=== PATIENT | female | born 1950 | race Caucasian/White ===

== ENCOUNTER 2018-10-03 11:57 | Emergency (ER) | payer OTHER ==
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
[2018-10-03] MEDS ORDERED: LOSA25TA57 PO (12:14)
[2018-10-03] MEDS ORDERED: DONE5TAB74 PO (12:14)
[2018-10-03] MEDS ORDERED: METO25TA23 PO (12:14)
[2018-10-03] MEDS ORDERED: LAMO25TA64 PO (12:14)
[2018-10-03] MEDS ORDERED: KETOROLAC TROM 10MG TAB PO ONE (12:40)
[2018-10-03] MEDS ORDERED: CYCLOBENZAPRINE HCL 10 MG TAB PO ONE (13:35)
--- NOTE | 2018-10-03 13:39 | RADIOLOGY IMAGING REPORT ---
FACILITY: [facility] - [place] PATIENT NAME: Jannette Paez : 1950 MR: [id number] V: [id number] EXAM DATE: ORDERING PHYSICIAN: WILBERTO LOO TECHNOLOGIST: Location: [facility] Patient: Jannette Paez : 1950 Visit/Account:[id number] Date of Sevice: 10/03/2018 Study: CERVICAL SPINE MIN 4 VIEW Indication: Neck pain Comparison study: None available Findings: AP lateral open mouth and bilateral oblique views of the cervical spine demonstrates no stephanie dence of acute bony abnormality. There is no evidence of prevertebral soft tissue swelling. The bon y neural foramina are unremarkable. There is no evidence of lytic or blastic bony lesions. The atlantoaxial articulation is unremarkable. IMPRESSION: No significant abnormality identified. Report Dictated By: Carlos Phillips at 10/03/2018 1:30 PM Report E-Signed By: Carlos Phillips at 10/03/2018 1:34 PM WSN:[id number]
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
[2018-10-03] MEDS ORDERED: KET10 PO (14:18)
[2018-10-03] MEDS ORDERED: CYCL10TA29 PO (14:18)
[2018-10-03 14:30] VITALS: BP 141/62
== END 2018-10-03 14:47 | disposition home or self-care (01) ==
LOC: ER 12:17
DX: S13.4XXA Sprain of ligaments of cervical spine, initial encounter (principal); V49.60XA Unspecified car occupant injured in collision with unspecified motor vehicles in traffic accident, initial encounter
CPT/HCPCS: 72050; 72120; 99284

== ENCOUNTER → 2018-11-05 | Outpatient (CLI) | payer MEDICARE ==
[~2018-11-05] MED LIST: CYCL10TA29 PO; DONE5TAB74 PO; KET10 PO; LAMO25TA64 PO; LOSA25TA57 PO; METO25TA23 PO
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
[2018-11-05 15:45] LABS: LDL CHOLESTEROL 134 mg/dl
[2018-11-05 15:50] LABS: PLATELET COUNT, AUTOMATED 303 K/uL (150-450)
== END ==
LOC: RAD 13:19
PROVIDERS: ATTEND Nurse Practitioner Family
DX: S32.9XXS Fracture of unspecified parts of lumbosacral spine and pelvis, sequela (principal); R73.01 Impaired fasting glucose; R53.81 Other malaise; E87.8 Other disorders of electrolyte and fluid balance, not elsewhere classified; E78.00 Pure hypercholesterolemia, unspecified; E53.8 Deficiency of other specified B group vitamins; E55.9 Vitamin D deficiency, unspecified
CPT/HCPCS: 36415; 77080; 82040; 82247; 82306; 82310; 82374; 82435; 82465; 82565; 82607; 82947; 83036; 83718; 84075; 84132; 84155; 84295; 84443; 84450; 84460; 84478; 84520; 85025

== ENCOUNTER 2018-11-19 11:32 | Inpatient (IN) | payer MEDICARE ==
[~2018-11-19] VITALS: Ht 177.8 cm; Wt 111.1 kg
--- NOTE | 2018-11-19 11:40 | ER Report ---
History and Physical Time Seen By MD: 11:37 HPI/ROS CHIEF COMPLAINT: Coffee grounds emesis HISTORY OF PRESENT ILLNESS: This is a 68-year-old female who presents to the emergency department for coffee grounds emesis. Patient states that she has been not feeling well with nausea and some vomiting and little intake over the last 10-14 days. She states today she had a coffee grounds emesis. She also has felt flushed and subjectively has had fevers. She has intermittent abdominal pain, normal bowel movement today however it was green in color. She is also had decreased urinary output and does appear to be concentrated, with a foul odor. She states she typically takes large quantities of NSAIDs however the last several days she's cut back on that and started taking Tylenol for her arthritis. She denies rashes, no headaches, denies chest pain or shortness of breath. REVIEW OF SYSTEMS: Constitutional: As above. Eyes: No discharge. ENT: No sore throat. Cardiovascular: No chest pain, no palpitations. Respiratory: No cough, no shortness of breath. Gastrointestinal: As above. Genitourinary: No hematuria. Musculoskeletal: No back pain. Skin: No rashes. Neurological: No headache. Allergies: Coded Allergies: Penicillins (Verified Allergy, Unknown, swelling, 11/19/18) IRLANDA Inhibitors (Verified Adverse Reaction, Unknown, cough, 11/19/18) cephalexin (Verified Adverse Reaction, Unknown, vomiting, 11/19/18) Home Meds Active Scripts Cyclobenzaprine Hcl (CYCLOBENZAPRINE HCL) 10 Mg Tablet, 10 MG PO TID PRN for PAIN, #15 TAB Prov:WILBERTO LOOP 10/03/18 Ketorolac Tromethamine (KETOROLAC TROMETHAMINE) 10 Mg Tab, 10 MG PO Q6H PRN for PAIN, #20 TAB Prov:WILBERTO LOO [facility] 10/03/18 Reported Medications Loratadine (CLARITIN) 10 Mg Capsule, 10 MG PO DAILY, CAPSULE 11/19/18 Prednisone (PREDNISONE) 20 Mg Tablet, 20 MG PO QDAY, TAB 11/04/18 Take 20 mg PO daily for 5 days, then go down to 5 mg daily. 11/19/18 Losartan Potassium (LOSARTAN POTASSIUM) 25 Mg Tablet, 100 MG PO QDAY 10/03/18 Donepezil Hcl (ARICEPT) 5 Mg Tablet, 10 MG PO QDAY, TAB 10/03/18 Metoprolol Succinate (METOPROLOL SUCCINATE) 25 Mg Tab.er.24h, 1 TAB PO QDAY, TAB 10/03/18 Lamotrigine (LAMICTAL) 25 Mg Tablet, 100 MG PO DAILY 10/03/18 Past Medical/Surgical History The patient has a past medical and surgical history of hypertension, appendectomy, cholecystectomy, hysterectomy, right rotator cuff repair, bilateral ankle surgeries. Reviewed Nurses Notes: Yes Constitutional Vital Sign - Last 24 Hours 11/19/18 11/19/18 11/19/18 11/19/18 11:40 11:40 12:00 12:02 Temp 99.3 Pulse 87 77 Resp 16 B/P (MAP) 123/81 (95) 133/100 (111) Pulse Ox 90 91 11/19/18 11/19/18 11/19/18 11/19/18 12:30 12:32 13:00 13:02 Pulse 69 68 B/P (MAP) 126/70 (88) 135/56 (82) Pulse Ox 94 91 11/19/18 11/19/18 11/19/18 11/19/18 13:07 13:30 13:37 13:42 Pulse 70 70 69 Resp 14 17 14 B/P (MAP) 128/59 (82) Pulse Ox 90 91 11/19/18 14:00 B/P (MAP) 148/70 (96) Physical Exam General Appearance: The patient is alert, has no immediate need for airway protection and no signs of toxicity. Eyes: Pupils equal and round no pallor or injection. ENT, Mouth: Mucous membranes are dry. Respiratory: There are no retractions, lungs are clear to auscultation. Cardiovascular: Regular rate and rhythm. No murmurs, clicks or rubs. Gastrointestinal: Abdomen is round, soft and diffusely tender in all quadrants, no masses, bowel sounds normal. Neurological: Alert and oriented sats 4. Moving all cavities. Following. No focal neurodeficits. Skin: Warm and dry, no rashes. Musculoskeletal: Neck is supple non tender. Bilateral lower back pain. No rashes, contusions, crepitus or deformities. Extremities are nontender, nonswollen and have full range of motion. DIFFERENTIAL DIAGNOSIS: After history and physical exam differential diagnosis was considered for urinary tract infection, appendicitis, sepsis, bowel obstruction, renal colic, upper GI bleed. Medical Decision Making Data Points Result Diagram: 11/19/18 1145 11/19/18 1145 Laboratory Hematology Test 11/19/18 11:45 White Blood Count 16.1 k/uL (4.5-11.0) H Red Blood Count 4.69 M/uL (4.17-5.56) Hemoglobin 13.4 g/dL (12.0-16.0) Hematocrit 39.8 % (34.0-47.0) Mean Corpuscular Volume 84.8 fL (80.0-96.0) Mean Corpuscular Hemoglobin 28.5 pg (26.0-33.0) Mean Corpuscular Hemoglobin Concent 33.6 g/dL (32.0-36.0) Red Cell Distribution Width 13.8 % (11.5-14.5) Platelet Count 379 K/uL (150-450) Mean Platelet Volume 8.0 fL (7.2-11.1) Neutrophils (%) (Auto) 76.3 % (39.4-72.5) H Lymphocytes (%) (Auto) 16.4 % (17.6-49.6) L Monocytes (%) (Auto) 6.1 % (4.1-12.4) Eosinophils (%) (Auto) 0.5 % (0.4-6.7) Basophils (%) (Auto) 0.7 % (0.3-1.4) Nucleated RBC Relative Count (auto) 0.7 /100WBC Neutrophils # (Auto) 12.3 K/uL (2.0-7.4) H Lymphocytes # (Auto) 2.6 K/uL (1.3-3.6) Monocytes # (Auto) 1.0 K/uL (0.3-1.0) Eosinophils # (Auto) 0.1 K/uL (0.0-0.5) Basophils # (Auto) 0.1 K/uL (0.0-0.1) Nucleated RBC Absolute Count (auto) 0.12 K/uL Chemistry Test 11/19/18 11:45 Sodium Level 139 mmol/L (137-145) Potassium Level 2.9 mmol/L (3.5-5.0) Chloride Level 107 mmol/L (98-107) Carbon Dioxide Level 19 mmol/L (22-31) Blood Urea Nitrogen 14 mg/dl (7-18) Creatinine 0.80 mg/dl (0.52-1.04) Glomerular Filtration Rate Calc > 60.0 Random Glucose 131 mg/dl (75-110) Lactate 1.3 mmol/L (0.7-2.1) Calcium Level 9.3 mg/dl (8.4-10.2) Magnesium Level 1.9 mg/dl (1.7-2.2) Total Bilirubin 0.6 mg/dl (0.2-1.3) Aspartate Amino Transf (AST/SGOT) 16 U/L (0-35) Alanine Aminotransferase (ALT/SGPT) 25 U/L (0-56) Alkaline Phosphatase 93 U/L (0-126) Total Protein 7.0 g/dl (6.3-8.2) Albumin 3.8 g/dl (3.5-5.0) Lipase 105 U/L (23-300) Coagulation Test 11/19/18 11:45 Prothrombin Time 13.8 seconds (12.0-14.4) Prothromb Time International Ratio 1.05 Activated Partial Thromboplast Time 28 seconds (23-35) Urinalysis Test 11/19/18 11:53 Urine Color Yellow Urine Clarity Slightly-cloudy Urine pH 6.0 pH (4.8-9.5) Urine Specific [place] 1.011 Urine Protein Negative mg/dL (NEGATIVE) Urine Glucose (UA) Negative mg/dL (NEGATIVE) Urine Ketones Negative mg/dL (NEGATIVE) Urine Blood Moderate (NEGATIVE) Urine Nitrite Positive (NEGATIVE) Urine Bilirubin Negative (NEGATIVE) Urine Urobilinogen Negative mg/dL (0.2-1.9) Urine Leukocyte Esterase Small (NEGATIVE) Urine RBC 2 /HPF (0-2/HPF) Urine WBC 24 /HPF (0-5/HPF) Urine Squamous Epithelial Cells Moderate /LPF (</=FEW) Urine Transitional Epithelial Cells Moderate /LPF (NONE-FEW) Urine Bacteria Moderate /HPF (NONE-FEW) Urine Mucus Few /HPF (NONE-FEW) EKG/Imaging EKG Interpretation 12 lead EKG: Time of EKG 158. Rhythm: normal sinus rhythm, ventricular rate 74 bpm. [place]: normal QRS: normal ST segments: No ST depression or elevation identified. No previous EKGs for comparison. Imaging PATIENT NAME: Jannette Paez : 1950 MR: [id number] V: [id number] EXAM DATE: ORDERING PHYSICIAN: NEL ACUÑA TECHNOLOGIST: Location: [facility] - [place] Patient: Jannette Paez : 1950 Visit/Account:[id number] Date of Sevice: 11/19/2018 EXAMINATION: Abdomen and pelvis CT with contrast HISTORY: Abdomen pain TECHNIQUE: CT was performed through the abdomen and pelvis following injection of iodinated intravenous contrast. Sagittal and coronal MPR reformatted images were generated. 75 mL isovue 370 injected. One of the following dose optimization techniques was utilized in the performance of this exam: automated exposure control; adjustment of the mA and/or kV according to patient size; or use of iterative reconstruction technique. Specific details can be referenced in the facility's radiology CT exam operational policy. COMPARISON: None. FINDINGS: Lower chest: Normal. Spleen: Normal. Adrenal glands: Normal. Pancreas: Normal. Kidneys: Multiple small patches of bilateral renal hypoattenuation in keeping with multiple pyelonephritis. Gallbladder: Surgically absent. Liver: Normal. Vessels: Normal for age. Lymph node assessment: Normal. Bowel including small bowel, colon and appendix: Normal stomach, normal caliber small bowel without acute small bowel abnormality. Small and difficult fat and small bowel containing hernia without obstruction. Surgically absent appendix. Normal colon. Peritoneum / retroperitoneum / mesentery: Normal. Pelvic structures: Normal bladder, absent uterus and normal rectum. No pelvic fluid or adenopathy. Right ovarian cyst measures 2.2 cm. Body wall: See comments above. Musculoskeletal: Mild chronic L1 wedge compression deformity. No acute osseous abnormality. IMPRESSION: 1. Bilateral acute pyelonephritis. 2. 2.2 cm nonspecific right ovarian cyst is statistically benign. Given patient age 3-6 month ultrasound follow-up may be warranted to ensure stability. 3. Small bowel and fat-containing small umbilical hernia without evidence of obstruction. Report Dictated By: Donte Hwang MD at 11/19/2018 1:10 PM Report E-Signed By: Donte Hwang MD at 11/19/2018 1:18 PM [facility] Course/Re-evaluation Clinical Indication for ER IV: Hydration, IV Access ED Course The patient was admitted to room. A history and physical obtained. Differential diagnoses were considered. IV was started. A CBC, CMP, lactate and blood cultures were obtained. CBC showing white count of 16.1 with a left shift, chemistry showing potassium 2.9, blood sugar 131. Normal lactate, magnesium 1.9, INR 1.05, urine positive for nitrites, and urine bacteria, urine sent for culture. CT showing bilateral pyelonephritis, 2.2 cm on specific right ovarian cyst, recommended follow-up in 3-6 months, small bowel and fat containing small umbilical hernia without evidence of obstruction. I did review the studies with the patient, was given 20 mEq IV potassium, 80 mg IV Protonix, 1 L normal saline bolus, 4 mg IV Zofran. Patient was given 1 g of Rocephin. I did speak with Dr. Fernández, the hospitalist as noted below, Patient had no other questions or concern, was agreeable with the admission. 11/19/2018 1:49:08 pm I did speak with Dr. Fernández, the hospitalist station examiner, he's accepted the patient to the hospital services for hypokalemia and bilateral pyelonephritis. Decision to Disposition Date: Nov 19, 2018 Decision to Disposition Time: 13:49 Depart Departure Latest Vital Signs Vital Signs Date Time Temp Pulse Resp B/P (MAP) Pulse Ox O2 Delivery O2 Flow Rate FiO2 11/19/18 14:00 148/70 (96) 11/19/18 13:42 69 14 11/19/18 13:37 91 11/19/18 11:40 99.3 Impression: Primary Impression: Pyelonephritis Additional Impression: Hypokalemia Condition: Improved Disposition: Admitted from ER Problem Qualifiers NEL ACUÑAP-BC Nov 19, 2018 11:40
[2018-11-19] MEDS ORDERED: ONDANSETRON 4 MG/2 ML VIAL IVP ONE (11:55)
[2018-11-19] MEDS ORDERED: NS(*) 0.9% 1000 ML BAG 1,000 ML IV ONE (11:55)
[2018-11-19 12:04] LABS: PLATELET COUNT, AUTOMATED 379 K/uL (150-450)
[2018-11-19] MEDS ORDERED: PANTOPRAZOLE SOD(*)40 MG VIAL 80 MG in NS(*) 0.9% 100 ML BAG 100 ML IVPB ONE (12:10)
[2018-11-19 12:13] LABS: INR 1.05
--- NOTE | 2018-11-19 12:15 | EKG ---
FACILITY: [facility] - [place] PATIENT NAME: VOLODYMYR VALENZUELA : [id number] MR: [id number] V: [id number] EXAM DATE: ORDERING PHYSICIAN: NEL ACUÑA TECHNOLOGIST: ESTHER Test Reason : STOMACH PRESSURE Blood Pressure : / mmHG Vent. Rate : 074 BPM Atrial Rate : 074 BPM P-R Int : 158 ms QRS Dur : 090 ms QT Int : 366 ms P-R-T Axes : 059 -25 038 degrees QTc Int : 406 ms Normal sinus rhythm with sinus arrhythmia Left ventricular hypertrophy Abnormal ECG No previous ECGs available Confirmed by BENITEZ GANDHI ([id number]) on 11/20/2018 6:27:49 AM Referred By: NEL Confirmed By:BENITEZ GANDHI
[2018-11-19] MEDS ORDERED: KCL (*) 20 MEQ/100 ML PREMIX 100 ML IV ONE (12:30)
[2018-11-19] MEDS ORDERED: IOPAMIDOL 76% 100 ML INFUS BTL 100 ML ONE (12:34)
--- NOTE | 2018-11-19 13:27 | RADIOLOGY IMAGING REPORT ---
FACILITY: [facility] - [place] PATIENT NAME: Jannette Paez : 1950 MR: [id number] V: [id number] EXAM DATE: ORDERING PHYSICIAN: NEL ACUÑA TECHNOLOGIST: Location: [facility] Patient: Jannette Paez : 1950 Visit/Account:[id number] Date of Sevice: 11/19/2018 EXAMINATION: Abdomen and pelvis CT with contrast HISTORY: Abdomen pain TECHNIQUE: CT was performed through the abdomen and pelvis following injection of iodinated intrave nous contrast. Sagittal and coronal MPR reformatted images were generated. 75 mL isovue 370 injecte d. One of the following dose optimization techniques was utilized in the performance of this exam: autom ated exposure control; adjustment of the mA and/or kV according to patient size; or use of iterative reconstruction technique. Specific details can be referenced in the facility's radiology CT exam ope rational policy. COMPARISON: None. FINDINGS: Lower chest: Normal. Spleen: Normal. Adrenal glands: Normal. Pancreas: Normal. Kidneys: Multiple small patches of bilateral renal hypoattenuation in keeping with multiple pyeloneph ritis. Gallbladder: Surgically absent. Liver: Normal. Vessels: Normal for age. Lymph node assessment: Normal. Bowel including small bowel, colon and appendix: Normal stomach, normal caliber small bowel without a cute small bowel abnormality. Small and difficult fat and small bowel containing hernia without obst ruction. Surgically absent appendix. Normal colon. Peritoneum / retroperitoneum / mesentery: Normal. Pelvic structures: Normal bladder, absent uterus and normal rectum. No pelvic fluid or adenopathy . Right ovarian cyst measures 2.2 cm. Body wall: See comments above. Musculoskeletal: Mild chronic L1 wedge compression deformity. No acute osseous abnormality. IMPRESSION: 1. Bilateral acute pyelonephritis. 2. 2.2 cm nonspecific right ovarian cyst is statistically benign. Given patient age 3-6 month ultra sound follow-up may be warranted to ensure stability. 3. Small bowel and fat-containing small umbilical hernia without evidence of obstruction. Report Dictated By: Donte Hwang MD at 11/19/2018 1:10 PM Report E-Signed By: Donte Hwang MD at 11/19/2018 1:18 PM WSN:[facility]
[2018-11-19] MEDS ORDERED: cefTRIAXone(*) 1 GM VIAL 1 GM in NS(*) 0.9% 100 ML MINI-BAG 100 ML IVPB ONE (13:55)
[2018-11-19 15:00] VITALS: BP 173/70
[2018-11-19] MEDS ORDERED: LORA10CA3 PO (15:09)
[2018-11-19] MEDS ORDERED: PRED20TA6 PO (15:09)
[2018-11-19] MEDS ORDERED: INFLUENZA VIRUS VAC 0.5ML SYR IM ONLY ONE (15:25)
[2018-11-19] MEDS ORDERED: PROMETHAZINE 25 MG/ML 1 ML AMP IVP PRN (15:25)
--- NOTE | 2018-11-19 15:53 | History & Physical ---
History of Present Illness Chief Complaint Nausea and Vomiting History of Present Illness She presented to ED with nausea and vomiting, and reports occasional coffee ground emesis. States she has had foul smelling urine, flank pain, and low grade fevers. History Problems: (1) HTN (hypertension) Home Meds Active Scripts Cyclobenzaprine Hcl (CYCLOBENZAPRINE HCL) 10 Mg Tablet, 10 MG PO TID PRN for PAIN, #15 TAB Prov:WILBERTO LOO POLYSOMNOGRAPHER 10/03/18 Ketorolac Tromethamine (KETOROLAC TROMETHAMINE) 10 Mg Tab, 10 MG PO Q6H PRN for PAIN, #20 TAB Prov:WILBERTO LOO POLYSOMNOGRAPHER 10/03/18 Reported Medications Loratadine (CLARITIN) 10 Mg Capsule, 10 MG PO DAILY, CAPSULE 11/19/18 Prednisone (PREDNISONE) 20 Mg Tablet, 20 MG PO QDAY, TAB 11/04/18 Take 20 mg PO daily for 5 days, then go down to 5 mg daily. 11/19/18 Losartan Potassium (LOSARTAN POTASSIUM) 25 Mg Tablet, 100 MG PO QDAY 10/03/18 Donepezil Hcl (ARICEPT) 5 Mg Tablet, 10 MG PO QDAY, TAB 10/03/18 Metoprolol Succinate (METOPROLOL SUCCINATE) 25 Mg Tab.er.24h, 1 TAB PO QDAY, TAB 10/03/18 Lamotrigine (LAMICTAL) 25 Mg Tablet, 100 MG PO DAILY 10/03/18 Allergies: Coded Allergies: Penicillins (Verified Allergy, Unknown, swelling, 11/19/18) IRLANDA Inhibitors (Verified Adverse Reaction, Unknown, cough, 11/19/18) cephalexin (Verified Adverse Reaction, Unknown, vomiting, 11/19/18) Patient History: Atherosclerosis FATHER, FH: kidney cancer FATHER, FH: liver cancer BROTHER OR SISTER FH: myocardial infarction FATHER, FH: pulmonary embolism CHILD Hx Smoking: No Hx Alcohol Use: No Hx Substance Use Disorder: No Review of Systems All Systems Reviewed/Normal: Yes, Except as Noted Gastrointestinal: Nausea, Vomiting Exam Vital Signs Vital Signs Date Time Temp Pulse Resp B/P (MAP) Pulse Ox O2 Delivery O2 Flow Rate FiO2 11/19/18 15:25 93 Room Air 11/19/18 15:00 98.8 69 18 173/70 (104) General Appearance: Alert, Awake, No Acute Distress Cardiovascular: Regular Rate and Rhythm Respiratory: No Respiratory Distress, Clear to Auscultation Medical Decision Making Data Points Result Diagram: 11/19/18 1145 11/19/18 1145 Assessment and Plan Problems: (1) Pyelonephritis Status: Acute Assessment & Plan: Bilateral Pyelonephritis shown on CT scan. Started on Levaquin IV, She did receive a dose of Rocephin in ED. Initial urine sample was contaminated. We ordered a repeat urine culture, however this will be after her initial dose of antibiotics. She will receive IV fluids. (2) Hypokalemia Status: Acute Assessment & Plan: IV replacement, repeat BMP is scheduled for the morning. (3) Nausea & vomiting Assessment & Plan: Phenergan ordered for nausea/vomiting (4) HTN (hypertension) Assessment & Plan: She is on chronic treatment with metoprolol, and will continue on her usual dose. (5) Chronic steroid use Assessment & Plan: Recently started on chronic prednisone for arthritis. We have placed her on stress dose hydrocortisone. Copies to: PRIMO LEAL ; Venous Thromboembolism Antithrombotics Is Pt On Any Antithrombotics?: No Exam Sepsis Risk: No Definite Risk ANNIA BERMAN Nov 19, 2018 15:53
[2018-11-19] MEDS: KCL/NS* 20 MEQ/1000 ML PREMIX 1,000 ML IV PRN (16:36)
[2018-11-19] MEDS: HYDROCORTISONE 100 MG/2 ML IVP SCH (16:37)
[2018-11-19] MEDS: LEVOFLOXACIN/D5W*500 MG/100 ML 100 ML IVPB SCH (16:44)
[2018-11-19] MEDS: ACETAMINOPHEN 500 MG TAB PO PRN (17:01)
[2018-11-19 18:50] VITALS: BP 176/78
[2018-11-19] MEDS: PANTOPRAZOLE SOD 40 MG IV VIAL IVP SCH (21:19)
[2018-11-19 22:38] VITALS: BP 171/76
[2018-11-19] MEDS: MORPHINE 2 MG/ML SYR IVP PRN (23:26)
[2018-11-20] VITALS (7 sets, daily range): BP systolic 143–200; BP diastolic 51–99; Ht 177.8 cm; Wt 111.1 kg
[2018-11-20] MEDS: HYDROCORTISONE 100 MG/2 ML IVP SCH ×3 (00:55→16:40)
[2018-11-20] MEDS: KCL/NS* 20 MEQ/1000 ML PREMIX 1,000 ML IV PRN ×3 (02:05→18:08)
[2018-11-20] MEDS: MORPHINE 2 MG/ML SYR IVP PRN ×4 (03:31→19:19)
[2018-11-20 05:40] LABS: PLATELET COUNT, AUTOMATED 291 K/uL (150-450)
[2018-11-20] MEDS: ACETAMINOPHEN 500 MG TAB PO PRN ×2 (08:06→16:40)
[2018-11-20] MEDS: lamoTRIgine 100 MG TAB PO SCH (08:53)
[2018-11-20] MEDS: LORATADINE 10 MG TAB PO SCH (08:53)
[2018-11-20] MEDS: DONEPEZIL HCL 5 MG TAB PO SCH (08:54)
[2018-11-20] MEDS: LOSARTAN POTASSIUM 50 MG TAB PO SCH (08:54)
[2018-11-20] MEDS: PANTOPRAZOLE SOD 40 MG IV VIAL IVP SCH ×2 (08:58→21:11)
[2018-11-20] MEDS ORDERED: METOPROLOL SUCC XL 25 MG TABCR PO SCH (09:00)
--- NOTE | 2018-11-20 11:02 | Hospitalist Progress Note ---
Subjective Progress Notes Subjective No acute events overnight. She did complain of increased pain thorough the night. Patient Complains of: Neurological: No: Syncope, Confusion Cardiovascular: No: Chest Pain, Palpitations Respiratory: No: Shortness of Breath Physical Exam Vital Signs Date Time Temp Pulse Resp B/P (MAP) Pulse Ox O2 Delivery O2 Flow Rate FiO2 11/20/18 07:51 98.4 75 20 182/83 (116) 89 Room Air Intake and Output 11/20/18 01:03 Intake Total 2342 ml Balance 2342 ml Intake Oral 1042 ml IV Total 1300 ml # Voids 6 General Appearance: Alert, No Acute Distress Cardiovascular: Regular Rate and Rhythm Respiratory: No Respiratory Distress, Clear to Auscultation Result Diagram: 11/20/1852011/20/18520 Assessment and Plan Problems: (1) Pyelonephritis Status: Acute Assessment & Plan: Bilateral Pyelonephritis shown on CT scan. Started on Levaquin IV, She did receive a dose of Rocephin in ED. Initial urine sample was contaminated. We ordered a repeat urine culture which is pending, however this will be after her initial dose of antibiotics. She will receive IV fluids. She is having some low back/flank pain. She as started on Morphine IVP last night, and seems to be tolerating well. (2) Hypokalemia Status: Acute Assessment & Plan: IV replacement, Will continue to monitor. (3) Nausea & vomiting Assessment & Plan: Phenergan ordered for nausea/vomiting (4) HTN (hypertension) Assessment & Plan: She is on chronic treatment with metoprolol, and will co ntinue on her usual dose with parameters. (5) Chronic steroid use Assessment & Plan: Recently started on chronic prednisone for arthritis. We have placed her on stress dose hydrocortisone. Exam Sepsis Risk: No Definite Risk ANNIA BERMAN Nov 20, 2018 11:02
--- NOTE | 2018-11-20 11:09 | Miscellaneous Provider Note ---
Miscellaneous Provider Note Note She has blood culture pending. Current coverage with Levaquin. Will adjust antibiotic therapy as needed for culture results. ANNIA BERMAN Nov 20, 2018 11:09
[2018-11-20] MEDS: LEVOFLOXACIN/D5W*500 MG/100 ML 100 ML IVPB SCH (15:17)
--- NOTE | 2018-11-20 18:15 | Antimicrobial Stewardship ---
Antimicrobial Stewardship Empiricly appropriate: Yes Comment Received Rocephin 1 gm IV in ED x1 and continues on Levaquin 500 mg IV daily for pyelonephritis. Approriate Cultures done: Yes (Urine and Blood. 1st Urine culture was contaminated and 2nd culture after dose of antibiotics. Urine growing gram fang rods. Blood culture shows NGTD.) Renal/Hepatic dosing: Yes Reviewed for Drug Interaction: Yes Monitored for Toxicities: Yes IV to PO Opportunity: No Comment Waiting on culture results. Determine cumulative duration: 5-7 days MICHAEL FONTENOT Nov 20, 2018 18:15
[2018-11-21] MEDS: HYDROCORTISONE 100 MG/2 ML IVP SCH (00:17)
[2018-11-21] MEDS: ACETAMINOPHEN 500 MG TAB PO PRN ×3 (00:51→19:06)
[2018-11-21 02:51] VITALS: BP 192/79
[2018-11-21] MEDS: MORPHINE 2 MG/ML SYR IVP PRN ×2 (04:51→20:48)
[2018-11-21] MEDS: KCL/NS* 20 MEQ/1000 ML PREMIX 1,000 ML IV PRN (05:10)
[2018-11-21 06:17] LABS: PLATELET COUNT, AUTOMATED 329 K/uL (150-450)
[2018-11-21 07:06] VITALS: BP 180/77
[2018-11-21] MEDS ORDERED: predniSONE 20 MG TAB PO SCH (09:00)
[2018-11-21] MEDS: lamoTRIgine 100 MG TAB PO SCH (09:33)
[2018-11-21] MEDS: PANTOPRAZOLE SOD 40 MG IV VIAL IVP SCH (09:33)
[2018-11-21] MEDS: LOSARTAN POTASSIUM 50 MG TAB PO SCH (09:34)
[2018-11-21] MEDS: DONEPEZIL HCL 5 MG TAB PO SCH (09:34)
[2018-11-21] MEDS: LORATADINE 10 MG TAB PO SCH (09:34)
[2018-11-21] MEDS: predniSONE 20 MG TAB PO SCH (09:34)
[2018-11-21] MEDS: METOPROLOL SUCC XL 25 MG TABCR PO SCH (09:34)
--- NOTE | 2018-11-21 10:34 | Hospitalist Progress Note ---
Subjective Progress Notes Subjective No acute events overnight. States she is voiding more consistently now, and her urine has a less fowl odor. Patient Complains of: Neurological: No: Confusion, Weakness Cardiovascular: No: Chest Pain, Palpitations Respiratory: No: Congestion, Shortness of Breath Physical Exam Vital Signs Date Time Temp Pulse Resp B/P (MAP) Pulse Ox O2 Delivery O2 Flow Rate FiO2 11/21/18 09:48 92 Room Air 11/21/18 07:06 97.9 55 20 180/77 (111) Intake and Output 11/21/18 01:03 Intake Total 2625 ml Output Total 400 ml Balance 2225 ml Intake Oral 520 ml IV Total 2105 ml Output Urine Total 400 ml # Voids 7 General Appearance: Alert, Awake, No Acute Distress Cardiovascular: Regular Rate and Rhythm Respiratory: No Respiratory Distress Result Diagram: 11/21/1852111/21/18521 Assessment and Plan Problems: (1) Pyelonephritis Status: Acute Assessment & Plan: Bilateral Pyelonephritis shown on CT scan. Started on Levaquin IV, She did receive a dose of Rocephin in ED. Initial urine sample was contaminated. We ordered a repeat urine culture which is growing gram negative rods, however this will be after her initial dose of antibiotics. We will adjust antibiotic coverage, if needed, when sensitivity results are back. Will look to transition to oral antibiotics when appropriate. She is receiving IV fluids and will look to saline lock her after she is tolerating PO fluids/nutrition better. Tolerating Morphine IVP and Tylenol well for pain management, however will look to transition to all oral pain medication when able to tolerate eating and drinking better. (2) Hypokalemia Status: Acute Assessment & Plan: Improved with IV replacement. Will look to stop IV replacement and continue to monitor. (3) Nausea & vomiting Assessment & Plan: Phenergan ordered for nausea/vomiting. Transitioning to SOFIA and will monitor. (4) HTN (hypertension) Assessment & Plan: She is on chronic treatment with metoprolol, and will continue on her usual dose with parameters. Her BP has been elevated, but could have a pain component. As her pain decreases we will monitor and adjust BP medications if necessary. (5) Chronic steroid use Assessment & Plan: Recently started on chronic prednisone for arthritis. She was placed on stress dose hydrocortisone on admission. Now tapering down to her home dose. Exam Sepsis Risk: No Definite Risk WITKOP,ANNIA R Nov 21, 2018 10:34
[2018-11-21 11:00] VITALS: BP 169/65
[2018-11-21 16:32] VITALS: BP 189/77
[2018-11-21] MEDS: LEVOFLOXACIN/D5W*500 MG/100 ML 100 ML IVPB SCH (16:37)
[2018-11-21 19:27] VITALS: BP 152/75
[2018-11-21] MEDS: PANTOPRAZOLE SOD 40 MG TABEC PO SCH (20:48)
[2018-11-21 23:26] VITALS: BP 179/84
[2018-11-22] MEDS: MORPHINE 2 MG/ML SYR IVP PRN (02:04)
[2018-11-22 02:09] VITALS: BP 180/98
[2018-11-22] MEDS: ACETAMINOPHEN 500 MG TAB PO PRN (04:38)
[2018-11-22 06:09] LABS: PLATELET COUNT, AUTOMATED 287 K/uL (150-450)
[2018-11-22 07:39] VITALS: BP 183/71
[2018-11-22] MEDS ORDERED: CYCLOBENZAPRINE HCL 10 MG TAB PO PRN (09:05)
[2018-11-22] MEDS ORDERED: TRIMETH/SULFA DS 160-800MG TAB PO SCH (09:30)
[2018-11-22] MEDS: DONEPEZIL HCL 5 MG TAB PO SCH (09:41)
[2018-11-22] MEDS: METOPROLOL SUCC XL 25 MG TABCR PO SCH (09:41)
[2018-11-22] MEDS: PANTOPRAZOLE SOD 40 MG TABEC PO SCH (09:41)
[2018-11-22] MEDS: LORATADINE 10 MG TAB PO SCH (09:41)
[2018-11-22] MEDS: predniSONE 20 MG TAB PO SCH (09:41)
[2018-11-22] MEDS: LOSARTAN POTASSIUM 50 MG TAB PO SCH (09:41)
[2018-11-22] MEDS: lamoTRIgine 100 MG TAB PO SCH (09:41)
[2018-11-22] MEDS ORDERED: PANT40TA65 PO (10:34)
[2018-11-22] MEDS ORDERED: ACET500T68 PO (10:34)
[2018-11-22] MEDS ORDERED: PRED-1 PO (10:34)
[2018-11-22] MEDS ORDERED: CYCL10TA29 PO (10:34)
[2018-11-22] MEDS ORDERED: SULF-198 PO (10:34)
--- NOTE | 2018-11-22 10:47 | Hospitalist Depart ---
Discharge Summary Reason for Hosp/Final Diag: (1) Pyelonephritis Status: Acute Hospital Course & Plan: Bilateral Pyelonephritis shown on CT scan. She did receive a dose of Rocephin in the ED. She was treated with Levaquin IV, and switched to Bactrim when culture sensitivities came back. She is tolerating eating and drinking well, and has been placed on Cyclobenzaprine and Tylenol for her lower back spasms/pain. Her urinary symptoms have improved and she has been afebrile since admission. (2) Hypokalemia Status: Acute Hospital Course & Plan: Improved with IV replacement. (3) Nausea & vomiting Hospital Course & Plan: Improved, tolerating a normal diet well. (4) HTN (hypertension) Hospital Course & Plan: She is on chronic treatment with Metoprolol and [place]. (5) Chronic steroid use Hospital Course & Plan: Recently started on chronic prednisone for arthritis. She was placed on stress dose hydrocortisone on admission. Currently tapering down to her home dose. Departure Weight (Pounds): 245 Result Diagram: 11/22/1850911/22/18509 Condition: Improved Discharge: Home, Self Care Discharge Instructions Home Meds Active Scripts Sulfamethoxazole/Trimet 800-160 Mg Tab (BACTRIM DS TABLET) 1 Each Tablet, 1 TAB PO Q12H, #28 TAB Prov:ANNIA BERMAN 11/22/18 Pantoprazole Sodium (PANTOPRAZOLE SODIUM) 40 Mg Tablet.dr, 40 MG PO QDAY, #28 TAB.SR Prov:ANNIA EBRMAN 11/22/18 Prednisone 10 Mg Tab (PREDNISONE 10 MG TAB) 10 Mg Tablet, 10 MG PO DIRECTED, #5 TAB Take 2 tablets for 1 day, then take 1 tablet for 3 days, then resume existing 5mg dose. Prov:ANNIA BERMAN 11/22/18 Acetaminophen (TYLENOL EXTRA STRENGTH) 500 Mg Tablet, 500-1000 MG PO Q8H PRN for PAIN, #30 TAB Prov:ANNIA BERMAN 11/22/18 Cyclobenzaprine Hcl (CYCLOBENZAPRINE HCL) 10 Mg Tablet, 10 MG PO TID PRN for MUSCLE SPASMS, #30 TAB Prov:ANNIA BERMAN 11/22/18 Cyclobenzaprine Hcl (CYCLOBENZAPRINE HCL) 10 Mg Tablet, 10 MG PO TID PRN for PAIN, #15 TAB Prov:WILBERTO LOO [employer] WORKER 10/03/18 Ketorolac Tromethamine (KETOROLAC TROMETHAMINE) 10 Mg Tab, 10 MG PO Q6H PRN for PAIN, #20 TAB Prov:WILBERTO [employer]OO [employer] WORKER 10/03/18 Reported Medications Loratadine (CLARITIN) 10 Mg Capsule, 10 MG PO DAILY, CAPSULE 11/19/18 Prednisone (PREDNISONE) 20 Mg Tablet, 20 MG PO QDAY, TAB 11/04/18 Take 20 mg PO daily for 5 days, then go down to 5 mg daily. 11/19/18 Losartan Potassium (LOSARTAN POTASSIUM) 25 Mg Tablet, 100 MG PO QDAY 10/03/18 Donepezil Hcl (ARICEPT) 5 Mg Tablet, 10 MG PO QDAY, TAB 10/03/18 Metoprolol Succinate (METOPROLOL SUCCINATE) 25 Mg Tab.er.24h, 1 TAB PO QDAY, TAB 10/03/18 Lamotrigine (LAMICTAL) 25 Mg Tablet, 100 MG PO DAILY 10/03/18 Diet: Regular Activity: As Tolerated Special Instructions: Continue to stay well hydrated. Follow up with your PCP for treatment of chronic conditions, and a repeat urine culture if necessary after antibiotic course is complete. Copies to: PRIMO LEAL ; Venous Thromboembolism Antithrombotics Is Pt On Any Antithrombotics?: ANNIA Muller Nov 22, 2018 10:47
== END 2018-11-22 11:50 | disposition home or self-care (01) | DRG 690 ==
LOC: ER 11:32 → MED 14:08
PROVIDERS: ADMIT Family Medicine; ATTEND Family Medicine
DX: N10 Acute pyelonephritis (principal); E87.6 Hypokalemia; I10 Essential (primary) hypertension; K42.9 Umbilical hernia without obstruction or gangrene; Z88.0 Allergy status to penicillin; Z88.8 Allergy status to other drugs, medicaments and biological substances; Z79.52 Long term (current) use of systemic steroids; Z90.49 Acquired absence of other specified parts of digestive tract; Z90.710 Acquired absence of both cervix and uterus
CPT/HCPCS: 36415; 74177; 81001; 82040; 82247; 82310; 82374; 82435; 82565; 82947; 83605; 83690; 83735; 84075; 84132; 84155; 84295; 84450; 84460; 84520; 85025; 85610; 85730; 87040; 87077; 87088; 87186; 93005; 96365; 96367; 96375; 99285; C9113; J0696; J1720; J1956; J2270; J2405; J3480; J7030; J7050; J7512; Q9967

== ENCOUNTER → 2018-12-12 | Outpatient (CLI) | payer MEDICARE ==
[2018-11-20 09:56] VITALS: BMI 35.1
[~2018-12-12] MED LIST changes: +ACET500T68 PO; +LORA10CA3 PO; +PANT40TA65 PO; +PRED-1 PO; +PRED20TA6 PO; +SULF-198 PO
== END ==
LOC: US 04:13
PROVIDERS: ATTEND Nurse Practitioner Family
DX: N12 Tubulo-interstitial nephritis, not specified as acute or chronic (principal)